=== PATIENT | female | born 1955 | race Two or more races ===

== ENCOUNTER 2022-02-13 10:00 | Inpatient (IN) | payer OTHER ==
[~2022-02-13] VITALS: Ht 157.5 cm; Wt 81.6 kg
[2022-02-13] MEDS ORDERED: NORVASC5 MG PO (15:40)
[2022-02-13] MEDS ORDERED: CLARITIN10 M1 PO (15:41)
[2022-02-13] MEDS ORDERED: FLOVENT HFA10.6 GM IH (15:41)
[2022-02-13] MEDS ORDERED: PROTONIX40 MG PO (15:42)
[2022-02-13] MEDS ORDERED: ZOCOR20 MG PO (15:42)
[2022-02-13] MEDS ORDERED: CYTOMEL25 MCG PO (15:43)
[2022-02-13] MEDS ORDERED: LIPITO PO (15:43)
[2022-02-13] MEDS ORDERED: TOPROL XL50 M1 PO (15:43)
[2022-02-13] MEDS ORDERED: CARAF (15:43)
[2022-02-13] MEDS ORDERED: SINGULAIR10 MG PO (15:44)
[2022-02-19] MEDS ORDERED: ATORVASTATIN CA20 MG (08:12)
[2022-02-19] MEDS ORDERED: FAMOTIDINE20 MG (08:12)
[2022-02-19] MEDS ORDERED: PROAIR HFA8.5 GM (08:13)
[2022-02-19] MEDS ORDERED: OMEPRAZOLE20 MG (08:13)
[2022-02-19] MEDS ORDERED: SUCRALFATE1 GM (08:13)
[2022-02-19] MEDS ORDERED: LOSARTAN POTASS50 MG (08:13)
[2022-02-21] MEDS ORDERED: ULTRACET PO (10:04)
[2022-02-21] MEDS ORDERED: INTESTINEX680 M1 PO (10:05)
[2022-02-21] MEDS ORDERED: DICLOFENAC SODI75 MG PO (10:05)
[2022-02-21] MEDS ORDERED: PROTONIX40 MG PO (10:06)
[2022-02-21] MEDS ORDERED: DICY20TA PO (10:07)
== END 2022-02-21 11:04 | disposition home or self-care (01) | DRG 331 ==
LOC: SURH 02-18 10:00 → ICU-2 02-18 12:38 → SURH 02-18 17:54
PROVIDERS: ADMIT Surgery; ATTEND Surgery
PROC: 0DBP4ZZ Excision of Rectum, Percutaneous Endoscopic Approach (ICD-10-PCS; 2022-02-18)
PROC: 0DTN4ZZ Resection of Sigmoid Colon, Percutaneous Endoscopic Approach (ICD-10-PCS; principal; 2022-02-18 12:45)
DX: K57.32 Diverticulitis of large intestine without perforation or abscess without bleeding (principal); R10.32 Left lower quadrant pain; Z20.822 Contact with and (suspected) exposure to COVID-19; I10 Essential (primary) hypertension; E11.9 Type 2 diabetes mellitus without complications; E03.8 Other specified hypothyroidism; G47.33 Obstructive sleep apnea (adult) (pediatric)